=== PATIENT | female | born 1975 | race Caucasian/White ===

== ENCOUNTER 2017-03-12 20:27 | Emergency (ER) | payer OTHER ==
[~2017-03-12] VITALS: Ht 162.6 cm; Wt 95.5 kg
[2017-03-12 20:40] VITALS: BP 160/87
== END 2017-03-12 22:30 | disposition left against medical advice (07) ==
LOC: EMS 20:33
DX: M79.602 Pain in left arm (principal); F17.210 Nicotine dependence, cigarettes, uncomplicated; Z53.21 Procedure and treatment not carried out due to patient leaving prior to being seen by health care provider

== ENCOUNTER 2017-05-26 16:56 | Emergency (ER) | payer MEDICAID, OTHER ==
[~2017-05-26] VITALS: Ht 162.6 cm; Wt 90.9 kg
[2017-05-26] MEDS ORDERED: PHENYLEPHRINE HCL 0.5% 15 ML NASAL SPRAY NASAL ONE (19:15)
[2017-05-26 19:50] VITALS: BP 132/82
== END 2017-05-26 20:08 | disposition home or self-care (01) ==
LOC: EMS 16:57
DX: R04.0 Epistaxis (principal); F17.210 Nicotine dependence, cigarettes, uncomplicated; Z88.6 Allergy status to analgesic agent
CPT/HCPCS: 99283

== ENCOUNTER 2018-08-14 10:16 | Emergency (ER) | payer MEDICAID ==
[~2018-08-14] VITALS: Ht 162.6 cm; Wt 77.3 kg
[2018-08-14 10:24] LABS: GLUCOSE,POINT OF CARE 223 MG/DL (70-110)
[2018-08-14] MEDS ORDERED: NADO20 PO (10:37)
[2018-08-14 10:50] VITALS: BP 145/80
== END 2018-08-14 11:08 | disposition left against medical advice (07) ==
LOC: EMS 10:16
DX: F10.129 Alcohol abuse with intoxication, unspecified (principal); F17.210 Nicotine dependence, cigarettes, uncomplicated; Z53.21 Procedure and treatment not carried out due to patient leaving prior to being seen by health care provider